=== PATIENT | female | born 1995 | race Caucasian/White ===

== ENCOUNTER 2025-08-14 17:59 | Emergency (ER) | payer OTHER, SELFPAY ==
[2025-08-14 18:11] VITALS: BP 130/71
--- NOTE | 2025-08-14 18:53 | ED.GENMED ---
History of Present Illness
General
Chief Complaint: Abdominal Pain
Source: patient
Exam Limitations: none
Time Seen by Provider: 08/14/25 18:36
History of Present Illness
History of Present Illness:
29yoF with a history of depression presenting with her for evaluation of abdominal pain. She reports pain in her right lower quadrant for the past 2 days. Pain is described as a dull, poking sensation. Pain has been constant and is
gradually worsening. Pain is worse with stretching. Pain is currently rated as a 5 out of 10 in severity. No history of similar pains in the past. She also was experiencing nausea and had some diarrhea earlier today. No fevers, chills, dysuria,
vomiting, vaginal bleeding. Patient has an IUD and does not menstruate. Only prior abdominal surgery is a section.
Phy Exam
General Physical Exam
General Presentation: well appearing and no apparent distress
General Skin: warm and dry
General Habitus: normal
General Mental: alert
ENT Exam
ENT Exam: normocephalic
Pulmonary Exam
Pulmonary Exam: no respiratory distress
Gastrointestinal Exam
Gastrointestinal Exam: soft, non distended and other (Mild tenderness in RLQ. Abdomen soft, non-distended. No rebound or guarding. )
Neurological Exam
Neurological Exam: alert
[place] Coma Scale
Eye Opening: Spontaneous
Verbal Response: Oriented
Motor Response: Obeys Commands
GCS Total Score: 15
Skin Exam
Skin Exam: normal color and warm/dry
Psychiatric Exam
Psychiatric Exam: normal mood/affect
Course
Orders/Labs/Results
Orders:
Orders
08/14/25 18:51
CT Abd/pel W Iv And Oral Contr Urgent
Comment:
Reason For Exam: RLQ Pain
Iohexol [Omnipaque] See Protocol PO NOW STA
Test Result ONCE
08/14/25 19:10
Complete Blood Count/With Diff Urgent
Comprehensive Metabolic Panel Urgent
HCG, Serum Qualitative Screen Urgent
Lipase Urgent
Abnormal Lab Results
08/14/25
19:10
RBC 4.12 L 10^6/uL
(4.20-5.40)
MCHC 32.6 L g/dL
(33.0-37.0)
08/14/25 19:10
08/14/25 19:10
Vital Signs
Initial and Last Documented VS:
Initial Vital Signs
Temp Pulse Resp BP Pulse Ox
98.3 F 84 20 130/71 100
08/14/25 18:11 08/14/25 18:11 08/14/25 18:11 08/14/25 18:11 08/14/25 18:11
Last Documented Vital Signs
Temp Pulse Resp BP Pulse Ox
98.3 F 82 16 113/71 99
08/14/25 18:11 08/14/25 21:29 08/14/25 21:29 08/14/25 21:26 08/14/25 21:29
MDM/Problems Addressed
Differential Diagnosis Includes:
29yoF here with RLQ pain x 2 days. Associated with nausea and diarrhea. Sent in by urgent care to r/o appy. WICK. Patient well-appearing no distress. No signs of peritonitis on abdominal exam. Differential diagnosis includes but is not limited to:
Appendicitis, mesenteric adenitis, colitis, ovarian cyst, nonspecific abdominal pain
Initial ED plan: Check abdominal labs, EKG, and CT abdomen. She declines analgesics.
*Pulse Oximetry
SaO2: 100
Oxygen Mode of Delivery: Room air
Patient hypoxic: no
*Critical Care Note
Total Time (30-74mins, 75-104mins- exclusive of procedures): Not Applicable
Update Note
Update Note:
Labs unremarkable including normal white count, renal function, LFTs. hCG negative. CT shows mild wall thickening involving the terminal ileum. Appendix normal. There is also a possible malpositioning of the IUD which patient was notified of.
During her last gynecology appointment, they were unable to find the IUD strings and she had an ultrasound and was told that the location of the IUD was 'fine.' Patient stable for discharge. She was advised to follow-up with her PCP as well as
gastroenterology. ED return precautions reviewed.
ED Attending Note
-
Portions of this chart may have been created with voice recognition software.� Occasional wrong word or��sound alike� substitutions may have occurred due to the inherent limitations of voice recognition software.
Discharge Plan
Departure
Patient Disposition: Home (Routine Discharge)
Date of Disposition: 08/14/25
Time of Disposition: 23:25
Patient with high blood pressure during this ER visit?: No
Discharge Problem:
Acute right lower quadrant pain, Terminal ileitis
Instructions: Abdominal Pain
Referrals:
Isidro Gerard MD [Active, Gastroenterology]
NONE,* [Family Provider, Internal Medicine]
Activity Restrictions/Additional Instructions:
Please follow-up with your family doctor and gastroenterology. Return to the ER with any new or worsening symptoms including severe pain or fevers.
Interventions
Interventions:
*Risk Screen - Suicide Last Done: 08/14/25 18:11
*Neglect/Abuse Screening Last Done: 08/14/25 18:11
*Nursing Disposition Last Done: 08/14/25 23:44
BS-Qzzmtv-Fcedyslbix Assessment Last Done: 08/14/25 21:29
Discharge Date and Time
Discharge Date/Time: 08/14/25 23:47
Print Language: SLOVAK
[2025-08-14 19:09] VITALS: BMI 20.5
[2025-08-14] MEDS: OMNIPAQUE 50 ML PO (19:12)
[2025-08-14 19:19] LABS: Hematocrit 38.4 % (37.0-47.0); Hemoglobin 12.5 g/dL (12.0-16.0); Mean Corp Hgb Conc. 32.6 g/dL (33.0-37.0); Mean Corpuscular Volume 93.2 fL (81.0-99.0); Nucleated Red Blood Cells % 0 %; Platelet Count 251 10^3/uL (130-400); Red Cell Dist. Width 12.2 % (11.5-14.5)
[2025-08-14 19:42] LABS: HCG, Serum Qualitative Screen Negative
[2025-08-14 19:45] LABS: ALT (SGPT) 12 U/L (0-35); AST (SGOT) 18 U/L (14-36); Albumin 4.6 g/dl (3.5-5.0); Alkaline Phosphatase 63 U/L (38-126); Blood Urea Nitrogen 13 mg/dl (7-17); Calcium 9.7 mg/dl (8.4-10.2); Carbon Dioxide 24 mmol/L (22-30); Chloride 104 mmol/L (98-107); Estimated Creatinine Clearance 117 ml/min; Glucose 92 mg/dl (70-99); Lipase 81 U/L (23-300); Potassium 4.3 mmol/L (3.5-5.1); Sodium 138 mmol/L (135-145); Total Protein 6.9 g/dl (6.3-8.2); eGFR > 60.00
[2025-08-14 21:26] VITALS: BP 113/71
== END 2025-08-14 23:47 | disposition home or self-care (01) ==
LOC: EMR 17:59
PROVIDERS: Physician Assistant; EMERGENCY PHYSICIAN Emergency Medicine
DX: K50.00 Crohn's disease of small intestine without complications (principal)
CPT/HCPCS: 99284; 74177; 80053; 83690; 84703; 85025; Q9967